=== PATIENT | male | born 1970 | race Caucasian/White ===

== ENCOUNTER 2020-05-12 23:32 | Emergency (ER) | payer BC ==
--- NOTE | 2020-05-12 23:53 | ED Physician Documentation ---
PD HPI CHEST PAIN - Stated complaint Stated Complaint: CHEST PAIN, IRREG HR - Chief complaint Chief Complaint: Cardiac - History obtained from History obtained from: Patient - History of Present Illness Timing - onset: Yesterday (approximately 24 hours ago) Timing - onset during: Light activity Timing - details: Abrupt onset, Intermittant Quality: Sharp Location: Left chest Radiation: Other (does not radiate) Improved by: Other (nothing) Worsened by: Other (no exacerbating factors) Associated symptoms: Diaphoresis (mild), Feeling faint / dizzy (mild), Palpitations. No: Shortness of air, Nausea, Vomiting Recently seen: Not recently seen - Additional information Additional information: patient complains of left chest pain that started approximately 24 hours ago while at home engaged in light activity. Review of Systems Constitutional: reports: Sweats. denies: Fever Cardiac: reports: Chest pain / pressure, Palpitations. 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 Living Arrangement: reports: At home - Social History Does the pt smoke?: No PD ED PE NORMAL - Vitals Vital signs reviewed: Yes - General General: Alert and oriented X 3, No acute distress, Well developed/nourished - HEENT HEENT: Moist mucous membranes - Neck Neck: Supple, no meningeal sign - Cardiac Cardiac: No murmur, No gallop, No rub - Respiratory Respiratory: No respiratory distress, Clear bilaterally - Abdomen Abdomen: Soft, Non tender - Derm Derm: Normal color, Warm and dry - Extremities Extremities: No edema PD ED PE EXPANDED - Cardiac Cardiac: Tachy, Regular Rhythm Results - Vitals Vitals: Vital Signs - 24 hr 05/12/20 05/12/20 05/13/20 23:35 23:45 00:15 Temperature 36.7 C Heart Rate 126 H 126 H 115 H Respiratory 20 22 20 Rate Blood Pressure 181/112 H 150/98 H 163/100 H O2 Saturation 99 100 100 05/13/20 05/13/20 05/13/20 00:30 01:05 01:45 Temperature Heart Rate 114 H 107 H 103 H Respiratory 22 20 21 Rate Blood Pressure 159/94 H 155/136 H 133/110 H O2 Saturation 98 100 98 05/13/20 05/13/20 05/13/20 02:00 02:30 03:01 Temperature 36.6 C 36.6 C 37.2 C Heart Rate 103 H 89 89 Respiratory 20 19 20 Rate Blood Pressure 138/103 H 119/79 128/86 H O2 Saturation 100 98 99 Oxygen O2 Source Room air - EKG (time done) No standard instances Rate: Rate (enter#) (121), Tachy Rhythm: Sinus tachycardia [place]: Normal Intervals: Normal SD QRS: Normal Ischemia: Normal ST segments - Labs Labs: Laboratory Tests 05/12/20 05/12/20 05/12/20 23:50 23:50 23:50 WBC 5.6 RBC 4.92 Hgb 15.4 Hct 43.8 MCV 89.0 MCH 31.3 H MCHC 35.2 RDW 11.9 L Plt Count 269 MPV 8.6 Neut # (Auto) 2.8 Lymph # (Auto) 2.2 [place] # (Auto) 0.4 Eos # (Auto) 0.1 Baso # (Auto) 0.0 Absolute Nucleated RBC 0.00 Nucleated RBC % 0.0 Sodium 133 L Potassium 4.0 Chloride 99 L Carbon Dioxide 23 Anion Gap 11.0 BUN 9 Creatinine 1.0 Estimated GFR (MDRD) 78 L Glucose 374 H POC Whole Bld Glucose Calcium 9.1 Total Bilirubin 0.8 AST 17 ALT 36 Alkaline Phosphatase 42 Troponin I High Sens 4.3 Total Protein 7.2 Albumin 4.6 Globulin 2.6 Albumin/Globulin Ratio 1.8 Lipase 31 Serum Ketones 05/12/20 05/13/20 23:50 01:12 WBC RBC Hgb Hct MCV MCH MCHC RDW Plt Count MPV Neut # (Auto) Lymph # (Auto) [place] # (Auto) Eos # (Auto) Baso # (Auto) Absolute Nucleated RBC Nucleated RBC % Sodium Potassium Chloride Carbon Dioxide Anion Gap BUN Creatinine Estimated GFR (MDRD) Glucose POC Whole Bld Glucose 207 H Calcium Total Bilirubin AST ALT Alkaline Phosphatase Troponin I High Sens Total Protein Albumin Globulin Albumin/Globulin Ratio Lipase Serum Ketones NEGATIVE - Rads (name of study) CXR Radiology: Prelim report reviewed, See rad report CT chest angio PE study Radiology: Prelim report reviewed, See rad report PD MEDICAL DECISION MAKING - ED course Complexity details: reviewed results, re-evaluated patient, considered differential, d/w patient ED course: ST and hypertensive. normal high sensitivity troponin. no acute findings on CXR or CT chest. hyperglycemia noted on blood tests but negative serum ketones. patient says he had been on metformin in the past but had significant side effects; he was able to control his blood sugars with diet and exercise as well as herbal supplements, although more recently he has not been getting regular exercise due to back problems and he says he has not been watching what he eats as well as he used to. he has a glucometer but had a long enough period of controlled blood sugars to not have to check any more. he did check earlier tonight due to symptoms and had a result in the 270s (370s in ED). given IV fluids and 8units reg insulin which brought FSBS down to 270s. his heart rate gradually, steadily improved and he had normal heart rate towards end of ED stay, and reported feeling much better prior to d/c. no cause for his chest discomfort found on tonights w/u, will f/u with PMD and return if worse. also advised to record his blood pressures twice per day and to try to obtain follow up within the week, as he might benefit from antihypertensive medication if his blood pressure remains high. similarly, he will check his blood sugar twice per day and also might need medication to control his blood sugar if it remains high Departure - Departure Disposition: 01 Home, Self Care Clinical Impression: Chest pain, Hyperglycemia Condition: Good Instructions: ED Chest Pain Atypical Unkn Cause, ED Hyperglycemia Diabetic Comments: Follow up with your primary care provider regarding the chest pain as well as your elevated blood sugar Discharge Date/Time: 05/13/20 03:03
[2020-05-12 23:58] LABS: BASOPHILS % (AUTO) 0.4 %; EOSINOPHILS # (AUTO) 0.1 10^3/uL (0.0-0.7); EOSINOPHILS % (AUTO) 1.8 %; HGB - HEMOGLOBIN 15.4 g/dL (14.0-18.0); LYMPHOCYTES # (AUTO) 2.2 10^3/uL (1.5-3.5); LYMPHOCYTES % (AUTO) 39.7 %; MEAN CORPUSCULAR HEMOGLOBIN 31.3 pg (27.0-31.0); MEAN CORPUSCULAR HGB CONC 35.2 g/dL (32.0-36.0); MEAN PLATELET VOLUME 8.6 fL (7.4-11.4); MONOCYTES # (AUTO) 0.4 10^3/uL (0.0-1.0); MONOCYTES % (AUTO) 7.5 %; NEUTROPHILS # (AUTO) 2.8 10^3/uL (1.5-6.6); NEUTROPHILS % (AUTO) 50.4 %; PLT - PLATELET COUNT 269 10^3/uL (130-450); RED BLOOD COUNT 4.92 10^6/uL (4.70-6.10); RED CELL DISTRIBUTION WIDTH 11.9 % (12.0-15.0); WHITE BLOOD COUNT 5.6 x10^3/uL (4.8-10.8)
[2020-05-13 00:10] LABS: ALBUMIN 4.6 g/dL (3.2-5.5); ALBUMIN/GLOBULIN RATIO 1.8 (1.0-2.2); BILIRUBIN,TOTAL 0.8 mg/dL (0.2-1.0); CALCIUM 9.1 mg/dL (8.5-10.3); TOTAL PROTEIN 7.2 g/dL (6.7-8.2)
[2020-05-13] MEDS ORDERED: SODIUM CHLORIDE 0.9% 1,000 ML IV STA (00:10)
[2020-05-13] MEDS ORDERED: INSULIN REGULAR HUMAN 100 UNIT/1 ML 10 ML MDV IVP STA (00:10)
[2020-05-13] MEDS ORDERED: IOVERSOL 320 100 ML VIAL IVP ONE ×2 (00:45→01:18)
[2020-05-13 03:03] VITALS: BP 128/86
--- NOTE | 2020-05-13 07:36 | CT Report ---
PROCEDURE: ANGIO CHEST W/WO INDICATIONS: chest pain, tachycardia CONTRAST: IV CONTRAST: Optiray 320 ml: 80 PO CONTRAST: *NO PO CONTRAST TECHNIQUE: After the administration of intravenous contrast, 2 mm thick sections acquired from the pulmonary api jennifer to the posterior costophrenic angles. 3-dimensional maximum intensity projection (MIP) coronal a nd sagittal reformats were then acquired through the thorax. For radiation dose reduction, the follow ing was used: automated exposure control, adjustment of mA and/or kV according to patient size. COMPARISON: Chest x-ray 05/12/2020 FINDINGS: Image quality: Excellent. Pulmonary arteries: Pulmonary arteries are normal in size, and demonstrate no intraluminal filling d efects to suggest central pulmonary embolism. Lungs and pleura: Lungs are clear. No pleural effusions or pneumothorax. Central and peripheral ai rways are patent. Mediastinum: Heart size is normal, without pericardial effusion. No mediastinal or hilar adenopathy . Thoracic aorta is normal in caliber and enhancement. Esophagus is normal in caliber. Small hiatal hernia. Bones and chest wall: No suspicious bony lesions. Ribs and thoracic spine appear intact throughout. Spine degenerative disc disease and facet arthropathy are noted. The thyroid is normal. No axillar y or supraclavicular adenopathy. Abdomen: Diffuse fatty infiltration of the visualized liver. Visualized upper abdominal solid organs otherwise appear normal in the early arterial phase of enhancement. IMPRESSION: 1. No pulmonary embolus. 2. No lung consolidation or pleural effusions. Reviewed by: Tessy Morris MD, PhD on 05/13/2020 7:35 AM [facility] Approved by: Tessy Morris MD, PhD on 05/13/2020 7:35 AM PST Station ID: [id number]
--- NOTE | 2020-05-13 07:37 | XRAY Report ---
PROCEDURE: Chest 1 View X-Ray INDICATIONS: Chest pain TECHNIQUE: One view of the chest was acquired. COMPARISON: None FINDINGS: Surgical changes and devices: None. Lungs and pleura: No pleural effusions or pneumothorax. Lungs are clear. Mediastinum: Mediastinal contours appear normal. Heart size is normal. Bones and chest wall: No suspicious bony lesions. Overlying soft tissues appear unremarkable. IMPRESSION: No acute cardiopulmonary disease process. Reviewed by: Tessy Morris MD, PhD on 05/13/2020 7:36 AM [facility] Approved by: Tessy Morris MD, PhD on 05/13/2020 7:36 AM [facility] Station ID: [id number]
== END 2020-05-13 03:03 | disposition home or self-care (01) ==
LOC: ED 23:32
DX: R07.9 Chest pain, unspecified (principal); E72.51 Non-ketotic hyperglycinemia; R03.0 Elevated blood-pressure reading, without diagnosis of hypertension; Z95.5 Presence of coronary angioplasty implant and graft
CPT/HCPCS: 36415; 71045; 71275; 80053; 82009; 83690; 84484; 85025; 93005; 96360; 96361; 99284; J1815; Q9967

== ENCOUNTER 2020-05-14 08:29 | Outpatient (CLI) | payer BC ==
[2020-05-14 15:28] LABS: ALBUMIN 4.4 g/dL (3.2-5.5); ALBUMIN/GLOBULIN RATIO 1.6 (1.0-2.2); ALKALINE PHOSPHATASE 36 IU/L (42-121); ALT ALANINE AMINOTRANSFERASE 35 IU/L (10-60); AST ASPARTATE AMINOTRANSFERASE 21 IU/L (10-42); BILIRUBIN,TOTAL 0.9 mg/dL (0.2-1.0); BUN - BLOOD UREA NITROGEN 12 mg/dL (6-20); CALCIUM 9.1 mg/dL (8.5-10.3); CARBON DIOXIDE - CO2 23 mmol/L (21-32); CHLORIDE 104 mmol/L (101-111); CHOL/HDL RATIO 5.9 (<5.0); CHOLESTEROL 265 mg/dL; CREATININE 0.7 mg/dL (0.6-1.2); CREATININE,URINE 168.1 mg/dL; GLUCOSE 208 mg/dL (70-100); HDL CHOLESTEROL 45 mg/dL; LDL CHOLESTEROL,CALCULATED 156 mg/dL; LDL/HDL RATIO 3.5 (<3.6); MICROALBUM/CREATININE RATIO,UR 3.6 ug/mg (<30.0); MICROALBUMIN,URINE 0.6 mg/dL (0-300.0); SODIUM 137 mmol/L (135-145); TOTAL PROTEIN 7.2 g/dL (6.7-8.2); VLDL CHOLESTEROL 64 mg/dL
[2020-05-14 18:40] LABS: HEMOGLOBIN A1c% 10.2 % (4.27-6.07)
== END 2020-05-14 08:30 | disposition home or self-care (01) ==
LOC: LAB.S 08:29
PROVIDERS: ATTEND Family Medicine
DX: E11.65 Type 2 diabetes mellitus with hyperglycemia (principal); E78.2 Mixed hyperlipidemia
CPT/HCPCS: 36415; 80053; 80061; 82043; 82570; 83036; 83721